=== PATIENT | female | born 1930 | race African-American/Black ===

== ENCOUNTER 2019-07-26 16:10 | Inpatient (IN) | payer MEDICARE ==
[~2019-07-26] VITALS: Ht 160 cm; Wt 45.8 kg
[~2019-07-26 16:10] MED LIST: ALBUTEROL2.5 MG/3 M INH; ASPIR 8181 MG ORAL; DOCUSATE SODIU100 MG ORAL; ELIQUIS5 MG PO; INCRUSE ELLI62.5 MCG IH; MEGESTROL ACETA40 MG PO; MULTIVITAMINS1 EAC8 ORAL; PREDNISONE20 MG ORAL; PROCARDIA XL30 MG ORAL; PROTONIX40 MG ORAL; SENNA8.6 M2 PO; SYNTHROID150 MCG ORAL; VITAMIN B-12500 MCG ORAL
[2019-07-26 21:20] VITALS: BP 111/55
[2019-07-26] MEDS ORDERED: VITAMIN C250 MG ORAL (21:58)
[2019-07-26] MEDS ORDERED: ACETAMINOPHEN325 M1 ORAL (22:01)
[2019-07-26] MEDS ORDERED: Zolpidem 5mg tab ORAL PRN (22:45)
[2019-07-27] VITALS: BP 109/60
[2019-07-27 04:00] VITALS: BP 110/61
[2019-07-27 07:26] LABS: ALANINE AMINOTRANSFERASE 36 U/L (12-78); ALBUMIN 2.4 G/DL (3.4-5.0); ALBUMIN/GLOBULIN RATIO 0.7 (1.0-2.7); ALKALINE PHOSPHATASE 62 U/L (46-116); ANION GAP 3 mmol/L (5-15); ASPARTATE AMINO TRANSFERASE 32 U/L (15-37); BASOPHILS % (AUTO) 0.5 % (0.0-2.0); BILIRUBIN,TOTAL 0.2 MG/DL (0.2-1.0); BLOOD UREA NITROGEN 30 mg/dL (7-18); CALCIUM 7.7 MG/DL (8.5-10.1); CARBON DIOXIDE 34 MMOL/L (21-32); CHLORIDE 127 MMOL/L (98-107); CHOLESTEROL 175 MG/DL (< 200); CREATININE 0.8 MG/DL (0.55-1.30); EOSINOPHILS % (AUTO) 1.7 % (0.0-3.0); HDL CHOLESTEROL 34 MG/DL (40-60); HEMATOCRIT 45.4 % (37.0-47.0); HEMOGLOBIN 13.4 G/DL (12.0-16.0); MEAN CORPUSCULAR VOLUME 101 FL (80-99); NEUTROPHILS % (AUTO) 83.8 % (45.0-75.0); PHOSPHORUS 3.9 MG/DL (2.5-4.9); PLATELET COUNT 162 K/UL (150-450); POTASSIUM 4.3 MMOL/L (3.5-5.1); RED BLOOD COUNT 4.51 M/UL (4.20-5.40); RED CELL DISTRIBUTION WIDTH 18.9 % (11.6-14.8); TRIGLYCERIDES 112 MG/DL (30-150); WHITE BLOOD COUNT 7.5 K/UL (4.8-10.8)
[2019-07-27 07:50] LABS: SODIUM 164 MMOL/L (136-145)
[2019-07-27 08:00] VITALS: BP 101/65
[2019-07-27] MEDS ORDERED: Megace 400mg/10ml Susp ORAL SCH (09:00)
[2019-07-27] MEDS: Vitamin B-12 500mcg tab ORAL SCH (09:46)
[2019-07-27] MEDS: Eliquis 5mg tablet ORAL SCH ×2 (09:47→18:22)
[2019-07-27] MEDS: Sennosides 8.6mg tab ORAL SCH (09:47)
--- NOTE | 2019-07-27 11:31 | Consultation ---
Consult Note Consult Note I was asked to eval for fluid management known to me from her previous admission patient lethargic no current notes in EMR . Assessment/Plan -----HyperNatremia, Dehydration (1) Hypothyroidism (2) s/p Acute respiratory failure & Intubation (3) Functional quadriplegia (4) h/o Septic shock (5) Electrolyte imbalance (6) Anemia when not dehydrated Plan D5W monitor lytes Anemia ross TFTs Synthroid per orders Tej Gomez MD Jul 27, 2019 11:31
--- NOTE | 2019-07-27 11:33 | Consultation ---
History of Present Illness General Date patient seen: Jul 27, 2019 Present Illness HPI 89 year old female with hx of Dementia, recent hospitalization at [facility] b/o acute respiratory failure, alf resident, was taken to [facility] with CC of facial droop. She was diagnosed to have UTI and increased Troponin and transferred to [facility] [place]. Allergies: Coded Allergies: VANCOMYCIN (Verified Allergy, Unknown, 06/23/19) Medication History Scheduled Apixaban (Eliquis), 5 MG PO EVERY 12 HOURS, (Reported) Ascorbic Acid* (Vitamin C*), 250 MG ORAL TWICE A DAY, (Reported) Aspirin* (Aspir 81*), 81 MG ORAL DAILY, (Reported) Cyanocobalamin (Vitamin B-12)* (Vitamin B-12*), 1,000 MCG ORAL DAILY, (Reported) Docusate Sodium* (Docusate Sodium*), 100 MG ORAL THREE TIMES A DAY, (Reported) Levothyroxine Sodium* (Synthroid*), 150 MCG ORAL DAILY, (Reported) Megestrol Acetate (Megestrol Acetate), 40 MG PO BID, (Reported) Multivitamin With Minerals (Multivitamins With Minerals*), 1 TAB ORAL DAILY, ( Reported) Nifedipine Xl* (Procardia Xl*), 30 MG ORAL Q12HR, (Reported) Pantoprazole* (Protonix*), 40 MG ORAL DAILY, (Reported) Prednisone* (Prednisone*), 5 MG ORAL DAILY, (Reported) Umeclidinium [place] (Incruse Ellipta), 62.5 MCG IH DAILY, (Reported) Scheduled PRN Acetaminophen* (Acetaminophen 325MG Tablet*), 650 MG ORAL Q4H PRN for Pain Scale (6-10), (Reported) Albuterol Sulfate* (Albuterol Sulfate Hhn*), 3 ML INH Q4H PRN for Shortness of Breath, (Reported) Miscellaneous Medications Sennosides (Senna), 8.6 MG PO, (Reported) Patient History Healthcare decision maker Resuscitation status Advanced Directive on File Past Medical/Surgical History Past Medical/Surgical History: (1) Anemia (2) Functional quadriplegia (3) Pancreatic mass (4) Hypothyroidism (5) Alzheimer disease Review of Systems All Other Systems: negative except mentioned in HPI Physical Exam General Appearance: cachetic, thin Lines, tubes and drains: peripheral HEENT: normocephalic, atraumatic Neck: non-tender, normal alignment Respiratory/Chest: chest wall non-tender, lungs clear Cardiovascular/Chest: normal peripheral pulses, normal rate, regular rhythm Abdomen: normal bowel sounds, non tender Genitourinary/Rectal: normal genital exam, normal rectal exam Extremities: normal range of motion, non-tender Skin Exam: normal pigmentation Last 24 Hour Vital Signs Date Time Temp Pulse Resp B/P (MAP) Pulse Ox O2 Delivery O2 Flow Rate FiO2 07/27/19 08:45 Nasal Cannula 2.0 07/27/19 08:00 96.6 105 20 101/65 (77) 98 07/27/19 08:00 102 07/27/19 04:00 99 07/27/19 04:00 97.5 98 18 110/61 (77) 100 07/27/19 00:00 97.7 101 18 109/60 (76) 100 07/27/19 00:00 97 07/26/19 22:00 Nasal Cannula 2.0 07/26/19 21:20 97.6 91 19 111/55 (73) 91 Intake and Output 07/26/19 07/27/19 19:00 07:00 Intake Total 50 ml Balance 50 ml Intake Oral 50 ml # Voids 2 Laboratory Tests Test 07/27/19 05:25 White Blood Count 7.5 K/UL (4.8-10.8) Red Blood Count 4.51 M/UL (4.20-5.40) Hemoglobin 13.4 G/DL (12.0-16.0) Hematocrit 45.4 % (37.0-47.0) Mean Corpuscular Volume 101 FL (80-99) H Mean Corpuscular Hemoglobin 29.8 PG (27.0-31.0) Mean Corpuscular Hemoglobin Concent 29.6 G/DL (32.0-36.0) L Red Cell Distribution Width 18.9 % (11.6-14.8) H Platelet Count 162 K/UL (150-450) Mean Platelet Volume 7.6 FL (6.5-10.1) Neutrophils (%) (Auto) 83.8 % (45.0-75.0) H Lymphocytes (%) (Auto) 8.0 % (20.0-45.0) L Monocytes (%) (Auto) 6.0 % (1.0-10.0) Eosinophils (%) (Auto) 1.7 % (0.0-3.0) Basophils (%) (Auto) 0.5 % (0.0-2.0) Sodium Level 164 MMOL/L (136-145) *H Potassium Level 4.3 MMOL/L (3.5-5.1) Chloride Level 127 MMOL/L (98-107) H Carbon Dioxide Level 34 MMOL/L (21-32) H Anion Gap 3 mmol/L (5-15) L Blood Urea Nitrogen 30 mg/dL (7-18) H Creatinine 0.8 MG/DL (0.55-1.30) Estimat Glomerular Filtration Rate mL/min (>60) Glucose Level 79 MG/DL (74-106) Calcium Level 7.7 MG/DL (8.5-10.1) L Phosphorus Level 3.9 MG/DL (2.5-4.9) Magnesium Level 2.4 MG/DL (1.8-2.4) Total Bilirubin 0.2 MG/DL (0.2-1.0) Aspartate Amino Transf (AST/SGOT) 32 U/L (15-37) Alanine Aminotransferase (ALT/SGPT) 36 U/L (12-78) Alkaline Phosphatase 62 U/L (46-116) Troponin I 0.128 ng/mL (0.000-0.056) Total Protein 5.7 G/DL (6.4-8.2) L Albumin 2.4 G/DL (3.4-5.0) L Globulin 3.3 g/dL Albumin/Globulin Ratio 0.7 (1.0-2.7) L Triglycerides Level 112 MG/DL (30-150) Cholesterol Level 175 MG/DL (< 200) LDL Cholesterol 112 mg/dL (<100) H HDL Cholesterol 34 MG/DL (40-60) L Cholesterol/HDL Ratio 5.1 (3.3-4.4) H Height (Feet): 5 Height (Inches): 3.00 Weight (Pounds): 101 Medications Current Medications Medications (Trade) Dose Ordered Sig/Adrien Route PRN Reason Start Time Stop Time Status Last Admin Dose Admin Acetaminophen (Tylenol) 650 mg Q6H PRN ORAL Mild Pain/Temp > 100.5 07/26/19 22:45 08/25/19 22:44 Apixaban (Eliquis) 5 mg BID ORAL 07/27/19 09:00 08/26/19 08:59 07/27/19 09:47 Cyanocobalamin (Vitamin B-12) 1,000 mcg DAILY ORAL 07/27/19 09:00 08/26/19 08:59 07/27/19 09:46 Dextrose 1,000 ml @ 150 mls/hr Q6H40M IV 07/27/19 11:15 08/26/19 11:14 UNV Levothyroxine Sodium (Synthroid) 150 mcg DAILY ORAL 07/28/19 09:00 08/27/19 08:59 UNV Levothyroxine Sodium (Synthroid) 150 mcg DAILY@0630 ORAL 07/27/19 06:30 08/26/19 06:29 07/27/19 06:03 Nifedipine (Procardia XL) 30 mg Q12HR ORAL 07/27/19 21:00 08/26/19 20:59 UNV Non-Formulary Medication (Non-Formulary Med) 1 ea DAILY ORAL 07/27/19 09:00 08/26/19 08:59 UNV Pantoprazole (Protonix) 40 mg DAILY ORAL 07/27/19 09:00 08/26/19 08:59 07/27/19 09:46 Sennosides (Senokot) 8.6 mg DAILY ORAL 07/27/19 09:00 08/26/19 08:59 07/27/19 09:47 Zolpidem Tartrate (Ambien) 5 mg HSPRN PRN ORAL Insomnia 07/26/19 22:45 08/02/19 22:44 Assessment/Plan Problem List: (1) Non-ST elevation (NSTEMI) myocardial infarction ICD Codes: I21.4 - Non-ST elevation (NSTEMI) myocardial infarction SNOMED: 39900973 (2) Dehydration ICD Codes: E86.0 - Dehydration SNOMED: 82978325 (3) UTI (urinary tract infection) ICD Codes: N39.0 - Urinary tract infection, site not specified SNOMED: 31761212 (4) At high risk for aspiration ICD Codes: Z91.89 - Other specified personal risk factors, not elsewhere classified SNOMED: 452407397 (5) Anemia ICD Codes: D64.9 - Anemia, unspecified SNOMED: 659284733 (6) Hypothyroidism ICD Codes: E03.9 - Hypothyroidism, unspecified SNOMED: 11279052 (7) Alzheimer disease ICD Codes: G30.9 - Alzheimer's disease, unspecified; F02.80 - Dementia in other diseases classified elsewhere without behavioral disturbance SNOMED: 78617358 Assessment/Plan: iv fluids iv abx check cultures swallow study continue Synthroid aspiration precaution dvt prophylaxis Wellington Benitez MD Jul 27, 2019 11:33
[2019-07-27 12:00] VITALS: BP 104/71
[2019-07-27] MEDS: Cefepime HCl 1 GM in D5W 55 ML IVPB SCH (12:16)
--- NOTE | 2019-07-27 12:36 | Diagnostic Imaging Report ---
Indication: Dyspnea Technique: XRAY Chest 1v Comparison: 07/09/2019 Findings: Heart size and mediastinal contours are stable. Atherosclerotic calcifications again noted. Mild interstitial prominence is again noted, similar to the prior exam allowing for differences in technique. Dense retrocardiac opacities are again noted. Again there is blunting of the left costophrenic sulcus suggesting trace to small left pleural effusion. No evidence of pneumothorax. Osseous structures stable. Impression: Persistent dense retrocardiac opacities which may be related to atelectasis or pneumonia. These findings are unchanged compared to the prior exam. Please correlate clinically. Unchanged blunting of the left costophrenic sulcus suggesting trace to small left pleural effusion. Unchanged generalized interstitial prominence which may be on the basis of senescent change. Again correlate clinically to exclude mild congestive changes.
--- NOTE | 2019-07-27 13:57 | Diagnostic Imaging Report ---
Indication: Altered mental status. Facial droop. Question transient ischemic attack versus stroke History of Alzheimer's dementia. Technique: MRI the brain performed utilizing T1 sagittal, T2 axial, T1 FLAIR axial, T2 FLAIR axial, T2*GRE and diffusion axial images without gadolinium. Comparison: None Findings: Mild motion degradation. Within these limitations: No diffusion abnormalities are seen on diffusion weighted imaging to suggest acute infarct. No obvious focus of abnormal GRE signal dropout to suggest acute intracranial hemorrhage. The sulci, ventricles and cisterns are prominent consistent with atrophy. Periventricular and supratentorial white matter T2 hyperintensity are seen without mass effect. There is no shift of midline structures. No significant extra-axial collections of fluid or blood are demonstrated. The sella and parasellar regions are grossly unremarkable. Expected signal flow voids are seen of the vessels of the skull base. Visualized mastoid air cells and paranasal sinuses are unremarkable. No focal bony calvarium or soft tissue lesions are seen. IMPRESSION: Motion degraded exam. Within these limitations: No acute intracranial abnormality. Specifically, no evidence of acute infarct as questioned clinically. Atrophy and chronic ischemic microvascular changes.
[2019-07-27 16:00] VITALS: BP 103/80
--- NOTE | 2019-07-27 16:07 | History & Physical ---
History and Physical History & Physicial job # [id number] Avi Luz MD Jul 27, 2019 16:07
[2019-07-27 20:00] VITALS: BP 95/58
[2019-07-27 20:33] LABS: APPEARANCE,URINE CLEAR; BILIRUBIN, URINE NEGATIVE (NEGATIVE); GLUCOSE, URINE (UA) NEGATIVE (NEGATIVE); KETONES,URINE 1+ (NEGATIVE); LEUKOCYTE ESTERASE ,URINE NEGATIVE (NEGATIVE); NITRITE,URINE NEGATIVE (NEGATIVE); PH,URINE 5 (4.5-8.0); PROTEIN,URINE 2+ (NEGATIVE); UROBILINOGEN,URINE NORMAL MG/DL (0.0-1.0)
[2019-07-27 20:37] LABS: COLOR,URINE YELLOW
[2019-07-28] VITALS: BP 111/59
[2019-07-28 04:00] VITALS: BP 139/61
[2019-07-28 08:00] VITALS: BP 107/64
[2019-07-28 08:27] LABS: BASOPHILS % (AUTO) 1.1 % (0.0-2.0); EOSINOPHILS % (AUTO) 0.7 % (0.0-3.0); HEMATOCRIT 39.3 % (37.0-47.0); HEMOGLOBIN 11.8 G/DL (12.0-16.0); LYMPHOCYTES % (AUTO) 11.5 % (20.0-45.0); MEAN CORPUSCULAR VOLUME 102 FL (80-99); MONOCYTES % (AUTO) 6.9 % (1.0-10.0); NEUTROPHILS % (AUTO) 79.9 % (45.0-75.0); PLATELET COUNT 131 K/UL (150-450); RED BLOOD COUNT 3.84 M/UL (4.20-5.40); RED CELL DISTRIBUTION WIDTH 18.9 % (11.6-14.8); WHITE BLOOD COUNT 5.3 K/UL (4.8-10.8)
[2019-07-28 08:29] LABS: INR 1.1 (0.9-1.1)
--- NOTE | 2019-07-28 09:18 | Cardiology Progress Note ---
Assessment/Plan Assessment/Plan abn trop likely demand related pt not a candidate for any invasive therapy repeat trop and ekg , and stat bb for tachy await echo will follow thank you is on eliqusi hesitant to start antiplt long-term will administer asa one time as well as statin [id number] Objective Last 24 Hour Vital Signs Date Time Temp Pulse Resp B/P (MAP) Pulse Ox O2 Delivery O2 Flow Rate FiO2 07/28/19 08:00 98.1 60 18 107/64 (78) 98 07/28/19 04:00 97.5 99 24 139/61 (87) 94 07/28/19 04:00 99 07/28/19 00:00 100 07/28/19 00:00 97.9 100 17 111/59 (76) 99 07/27/19 21:00 Nasal Cannula 2.0 07/27/19 20:00 97.5 98 16 95/58 (70) 96 07/27/19 20:00 98 07/27/19 16:00 96.7 101 22 103/80 (88) 97 07/27/19 16:00 105 07/27/19 12:00 102 07/27/19 12:00 98.6 102 19 104/71 (82) 100 Intake and Output 07/27/19 07/28/19 18:59 06:59 Intake Total 25 ml Output Total 250 ml 200 ml Balance -225 ml -200 ml Intake Oral 0 ml IV Total 25 ml Output Urine Total 250 ml 200 ml # Voids 1 Laboratory Tests Test 07/27/19 17:30 07/28/19 07:38 Urine Color Yellow Urine Appearance Clear Urine pH 5 (4.5-8.0) Urine Specific [place] 1.025 (1.005-1.035) Urine Protein 2+ (NEGATIVE) H Urine Glucose (UA) Negative (NEGATIVE) Urine Ketones 1+ (NEGATIVE) H Urine Blood 5+ (NEGATIVE) H Urine Nitrite Negative (NEGATIVE) Urine Bilirubin Negative (NEGATIVE) Urine Urobilinogen Normal MG/DL (0.0-1.0) Urine Leukocyte Esterase Negative (NEGATIVE) Urine RBC 5-10 /HPF (0 - 2) H Urine WBC 2-4 /HPF (0 - 2) Urine Squamous Epithelial Cells Few /LPF (NONE/OCC) Urine Bacteria Few /HPF (NONE) Urine Yeast Few /HPF (NONE) H White Blood Count 5.3 K/UL (4.8-10.8) Red Blood Count 3.84 M/UL (4.20-5.40) L Hemoglobin 11.8 G/DL (12.0-16.0) L Hematocrit 39.3 % (37.0-47.0) Mean Corpuscular Volume 102 FL (80-99) H Mean Corpuscular Hemoglobin 30.7 PG (27.0-31.0) Mean Corpuscular Hemoglobin Concent 30.0 G/DL (32.0-36.0) L Red Cell Distribution Width 18.9 % (11.6-14.8) H Platelet Count 131 K/UL (150-450) L Mean Platelet Volume 7.1 FL (6.5-10.1) Neutrophils (%) (Auto) 79.9 % (45.0-75.0) H Lymphocytes (%) (Auto) 11.5 % (20.0-45.0) L Monocytes (%) (Auto) 6.9 % (1.0-10.0) Eosinophils (%) (Auto) 0.7 % (0.0-3.0) Basophils (%) (Auto) 1.1 % (0.0-2.0) Prothrombin Time 11.6 SEC (9.30-11.50) H Prothromb Time International Ratio 1.1 (0.9-1.1) Activated Partial Thromboplast Time 31 SEC (23-33) Sodium Level Pending Potassium Level Pending Chloride Level Pending Carbon Dioxide Level Pending Blood Urea Nitrogen Pending Creatinine Pending Estimat Glomerular Filtration Rate Pending Glucose Level Pending Hemoglobin A1c 5.5 % (4.3-6.0) Uric Acid Pending Calcium Level Pending Phosphorus Level Pending Magnesium Level Pending Total Bilirubin Pending Gamma Glutamyl Transpeptidase Pending Aspartate Amino Transf (AST/SGOT) Pending Alanine Aminotransferase (ALT/SGPT) Pending Alkaline Phosphatase Pending Total Creatine Kinase Pending C-Reactive Protein, Quantitative Pending Pro-B-Type Natriuretic Peptide Pending Total Protein Pending Albumin Pending Globulin Pending Free Thyroxine Pending Free Triiodothyronine Pending Microbiology Date/Time Source Procedure Growth Status 07/27/19 17:30 Urine,Clean Catch Urine Culture - Preliminary NO GROWTH Resulted Geoff Oneill MD Jul 28, 2019 09:18
[2019-07-28 09:24] LABS: ALANINE AMINOTRANSFERASE 26 U/L (12-78); ALBUMIN 2.3 G/DL (3.4-5.0); ALBUMIN/GLOBULIN RATIO 0.7 (1.0-2.7); ALKALINE PHOSPHATASE 54 U/L (46-116); ANION GAP 3 mmol/L (5-15); ASPARTATE AMINO TRANSFERASE 21 U/L (15-37); BILIRUBIN,TOTAL 0.3 MG/DL (0.2-1.0); BLOOD UREA NITROGEN 32 mg/dL (7-18); CALCIUM 7.4 MG/DL (8.5-10.1); CARBON DIOXIDE 33 MMOL/L (21-32); CHLORIDE 123 MMOL/L (98-107); CREATININE 0.9 MG/DL (0.55-1.30); POTASSIUM 4.1 MMOL/L (3.5-5.1); SODIUM 159 MMOL/L (136-145)
[2019-07-28] MEDS: Sennosides 8.6mg tab ORAL SCH (09:28)
[2019-07-28] MEDS: Vitamin B-12 500mcg tab ORAL SCH (09:28)
[2019-07-28] MEDS: Eliquis 5mg tablet ORAL SCH ×2 (09:28→17:55)
[2019-07-28] MEDS: Metoprolol Tartrate 12.5mg TAB ORAL SCH ×2 (09:30→21:23)
[2019-07-28] MEDS ORDERED: Aspirin EC 81mg tab ORAL SCH (09:30)
[2019-07-28 09:46] LABS: CREATINE KINASE 62 U/L (26-308); GAMMA GLUTAMYL TRANSPEPTIDASE 9 U/L (5-85); PHOSPHORUS 2.2 MG/DL (2.5-4.9)
--- NOTE | 2019-07-28 10:01 | Consultation ---
History of Present Illness General Date patient seen: Jul 28, 2019 Reason for Consultation: UTI Present Illness HPI Ms. Cooper is an 89 yo female with PMHx of HTN, Pancreatic mass, Functional quadriplegia, Alzheimer disease and Hypothyroidism who was transferred from [place] after presenting with possible acute CVA, Elevated trops and UTI. She has dementia and is unable to given a history. She was note to have facial droop at the retirement. At time of arrival she had been aferbile, UA (-) and she had no leukocytosis. She is currently on Cefepime and 2L NC. She is lethargic and not communicating so Hx was obtained from the notes ID was consulted for PNA PMHx/PSHx HTN SocHx No E/T/D FamHx Unable to obtain as patient with dementia Allergies: Coded Allergies: VANCOMYCIN (Verified Allergy, Unknown, 06/23/19) Medication History Scheduled Apixaban (Eliquis), 5 MG PO EVERY 12 HOURS, (Reported) Ascorbic Acid* (Vitamin C*), 250 MG ORAL TWICE A DAY, (Reported) Aspirin* (Aspir 81*), 81 MG ORAL DAILY, (Reported) Cyanocobalamin (Vitamin B-12)* (Vitamin B-12*), 1,000 MCG ORAL DAILY, (Reported) Docusate Sodium* (Docusate Sodium*), 100 MG ORAL THREE TIMES A DAY, (Reported) Levothyroxine Sodium* (Synthroid*), 150 MCG ORAL DAILY, (Reported) Megestrol Acetate (Megestrol Acetate), 40 MG PO BID, (Reported) Multivitamin With Minerals (Multivitamins With Minerals*), 1 TAB ORAL DAILY, ( Reported) Nifedipine Xl* (Procardia Xl*), 30 MG ORAL Q12HR, (Reported) Pantoprazole* (Protonix*), 40 MG ORAL DAILY, (Reported) Prednisone* (Prednisone*), 5 MG ORAL DAILY, (Reported) Umeclidinium [place] (Incruse Ellipta), 62.5 MCG IH DAILY, (Reported) Scheduled PRN Acetaminophen* (Acetaminophen 325MG Tablet*), 650 MG ORAL Q4H PRN for Pain Scale (6-10), (Reported) Albuterol Sulfate* (Albuterol Sulfate Hhn*), 3 ML INH Q4H PRN for Shortness of Breath, (Reported) Miscellaneous Medications Sennosides (Senna), 8.6 MG PO, (Reported) Patient History Healthcare decision maker Resuscitation status Advanced Directive on File Review of Systems ROS Narrative Unable to obtain as patient with dementia Physical Exam Last 24 Hour Vital Signs Date Time Temp Pulse Resp B/P (MAP) Pulse Ox O2 Delivery O2 Flow Rate FiO2 07/28/19 09:30 60 107/64 07/28/19 08:00 98.1 60 18 107/64 (78) 98 07/28/19 04:00 97.5 99 24 139/61 (87) 94 07/28/19 04:00 99 07/28/19 00:00 100 07/28/19 00:00 97.9 100 17 111/59 (76) 99 07/27/19 21:00 Nasal Cannula 2.0 07/27/19 20:00 97.5 98 16 95/58 (70) 96 07/27/19 20:00 98 07/27/19 16:00 96.7 101 22 103/80 (88) 97 07/27/19 16:00 105 07/27/19 12:00 102 07/27/19 12:00 98.6 102 19 104/71 (82) 100 Intake and Output 07/27/19 07/28/19 19:00 07:00 Intake Total 25 ml Output Total 250 ml 200 ml Balance -225 ml -200 ml IV Total 25 ml Output Urine Total 250 ml 200 ml # Voids 1 Laboratory Tests Test 07/27/19 17:30 07/28/19 07:38 Urine Color Yellow Urine Appearance Clear Urine pH 5 (4.5-8.0) Urine Specific [place] 1.025 (1.005-1.035) Urine Protein 2+ (NEGATIVE) H Urine Glucose (UA) Negative (NEGATIVE) Urine Ketones 1+ (NEGATIVE) H Urine Blood 5+ (NEGATIVE) H Urine Nitrite Negative (NEGATIVE) Urine Bilirubin Negative (NEGATIVE) Urine Urobilinogen Normal MG/DL (0.0-1.0) Urine Leukocyte Esterase Negative (NEGATIVE) Urine RBC 5-10 /HPF (0 - 2) H Urine WBC 2-4 /HPF (0 - 2) Urine Squamous Epithelial Cells Few /LPF (NONE/OCC) Urine Bacteria Few /HPF (NONE) Urine Yeast Few /HPF (NONE) H White Blood Count 5.3 K/UL (4.8-10.8) Red Blood Count 3.84 M/UL (4.20-5.40) L Hemoglobin 11.8 G/DL (12.0-16.0) L Hematocrit 39.3 % (37.0-47.0) Mean Corpuscular Volume 102 FL (80-99) H Mean Corpuscular Hemoglobin 30.7 PG (27.0-31.0) Mean Corpuscular Hemoglobin Concent 30.0 G/DL (32.0-36.0) L Red Cell Distribution Width 18.9 % (11.6-14.8) H Platelet Count 131 K/UL (150-450) L Mean Platelet Volume 7.1 FL (6.5-10.1) Neutrophils (%) (Auto) 79.9 % (45.0-75.0) H Lymphocytes (%) (Auto) 11.5 % (20.0-45.0) L Monocytes (%) (Auto) 6.9 % (1.0-10.0) Eosinophils (%) (Auto) 0.7 % (0.0-3.0) Basophils (%) (Auto) 1.1 % (0.0-2.0) Prothrombin Time 11.6 SEC (9.30-11.50) H Prothromb Time International Ratio 1.1 (0.9-1.1) Activated Partial Thromboplast Time 31 SEC (23-33) Sodium Level 159 MMOL/L (136-145) H Potassium Level 4.1 MMOL/L (3.5-5.1) Chloride Level 123 MMOL/L (98-107) H Carbon Dioxide Level 33 MMOL/L (21-32) H Anion Gap 3 mmol/L (5-15) L Blood Urea Nitrogen 32 mg/dL (7-18) H Creatinine 0.9 MG/DL (0.55-1.30) Estimat Glomerular Filtration Rate mL/min (>60) Glucose Level 182 MG/DL (74-106) #H Hemoglobin A1c 5.5 % (4.3-6.0) Uric Acid 8.9 MG/DL (2.6-7.2) H Calcium Level 7.4 MG/DL (8.5-10.1) L Phosphorus Level 2.2 MG/DL (2.5-4.9) L Magnesium Level 2.4 MG/DL (1.8-2.4) Total Bilirubin 0.3 MG/DL (0.2-1.0) Gamma Glutamyl Transpeptidase 9 U/L (5-85) Aspartate Amino Transf (AST/SGOT) 21 U/L (15-37) Alanine Aminotransferase (ALT/SGPT) 26 U/L (12-78) Alkaline Phosphatase 54 U/L (46-116) Total Creatine Kinase 62 U/L (26-308) Troponin I Pending C-Reactive Protein, Quantitative 3.3 mg/dL (0.00-0.90) H Pro-B-Type Natriuretic Peptide 712 pg/mL (0-125) H Total Protein 5.5 G/DL (6.4-8.2) L Albumin 2.3 G/DL (3.4-5.0) L Globulin 3.2 g/dL Albumin/Globulin Ratio 0.7 (1.0-2.7) L Free Thyroxine 1.17 NG/DL (0.76-1.46) Free Triiodothyronine 1.2 pg/mL (2.3-4.2) L Microbiology Date/Time Source Procedure Growth Status 07/27/19 17:30 Urine,Clean Catch Urine Culture - Preliminary NO GROWTH Resulted Height (Feet): 5 Height (Inches): 3.00 Weight (Pounds): 101 Medications Current Medications Medications (Trade) Dose Ordered Sig/Adrien Route PRN Reason Start Time Stop Time Status Last Admin Dose Admin Acetaminophen (Tylenol) 650 mg Q6H PRN ORAL Mild Pain/Temp > 100.5 07/26/19 22:45 08/25/19 22:44 Apixaban (Eliquis) 5 mg BID ORAL 07/27/19 09:00 08/26/19 08:59 07/28/19 09:28 Aspirin (Ecotrin) 81 mg DAILY ORAL 07/28/19 09:30 08/27/19 09:29 07/28/19 09:38 Cefepime HCl 1 gm/ Dextrose 55 ml @ 110 mls/hr Q24H IVPB 07/27/19 12:00 08/03/19 11:59 07/27/19 12:16 Cyanocobalamin (Vitamin B-12) 1,000 mcg DAILY ORAL 07/27/19 09:00 08/26/19 08:59 07/28/19 09:28 Dextrose 1,000 ml @ 150 mls/hr Q6H40M IV 07/27/19 11:15 08/26/19 11:14 07/28/19 09:29 Levothyroxine Sodium (Synthroid) 150 mcg DAILY@0630 ORAL 07/28/19 06:30 08/27/19 06:29 07/28/19 06:55 Metoprolol Tartrate (Lopressor) 12.5 mg Q12HR ORAL 07/28/19 09:30 08/27/19 09:29 Non-Formulary Medication (Non-Formulary Med) 1 ea DAILY ORAL 07/27/19 09:00 08/26/19 08:59 UNV Pantoprazole (Protonix) 40 mg DAILY ORAL 07/27/19 09:00 08/26/19 08:59 07/28/19 09:28 Sennosides (Senokot) 8.6 mg DAILY ORAL 07/27/19 09:00 08/26/19 08:59 07/28/19 09:28 Zolpidem Tartrate (Ambien) 5 mg HSPRN PRN ORAL Insomnia 07/26/19 22:45 08/02/19 22:44 Objective Narrative Gen: On 2L nC HEENT: NCAT, MMM, PERRL, No Oral lesion, no scleral icterus NECK: supple, No LAD, No JVD LUNGS: Coarse B/L, with significant B/L Crackles CARDS: RRR, S1, S2, No M/R/G, ABD: Soft, NT, ND, No R/G, + BS, No HSM, No Masses : Deferred Ext: C/C/E, Pulses 2+ B/L (DP, Rad): NEURO: Lethargic not following, Prominent right facial droop SKIN: Warm/dry, No rashes Assessment/Plan Assessment/Plan: 89 yo female with PMHx of HTN, Pancreatic mass, Functional quadriplegia, Alzheimer disease and Hypothyroidism who was transferred from [place] after presenting with possible acute CVA, Elevated trops and UTI. UTI Dx at [place] Here UA (-) Urine Cx - Pend Hx of PNA last month s/p Tx Was intubated at that time, s/p extubation 07/05 CXR 07/27/19 - rectrocardiac opacity still present No fever No leukocytosis Reported facial droop MRI 07/27/19 - Motion degraded exam. Within these limitations: No acute intracranial abnormality. Specifically, no evidence of acute infarct as questioned clinically. Atrophy and chronic ischemic microvascular changes. Elevated trops HTN PE Alzheimers Pancreatic mass Hypothyroid Billiroth operation PLAN - Continue cefepime #1 pending Cx -07/03 SP Zosyn #10 -07/01 SP Azithromycin #8 -06/26 SP Linezolid #2 -06/24/19 S/P Ertapemem #1 and Vancomycin #1 - f/u Cultures - Monitor CBC and Temps Thank you for this consult. [facility] will continue to follow the patient with you during this hospitalization. Shashi Mendieta MD Jul 28, 2019 10:01
[2019-07-28 12:00] VITALS: BP 98/46
[2019-07-28] MEDS: Cefepime HCl 1 GM in D5W 55 ML IVPB SCH (12:46)
--- NOTE | 2019-07-28 13:46 | Internal Med Progress Note ---
Subjective Date of Service: Jul 28, 2019 Physician Name Kody Bauer Attending Physician Avi Luz MD Current Medications Medications (Trade) Dose Ordered Sig/Adrien Route PRN Reason Start Time Stop Time Status Last Admin Dose Admin Acetaminophen (Tylenol) 650 mg Q6H PRN ORAL Mild Pain/Temp > 100.5 07/26/19 22:45 08/25/19 22:44 Apixaban (Eliquis) 5 mg BID ORAL 07/27/19 09:00 08/26/19 08:59 07/28/19 09:28 Aspirin (Ecotrin) 81 mg DAILY ORAL 07/28/19 09:30 08/27/19 09:29 07/28/19 09:38 Cefepime HCl 1 gm/ Dextrose 55 ml @ 110 mls/hr Q24H IVPB 07/27/19 12:00 08/03/19 11:59 07/28/19 12:46 Cyanocobalamin (Vitamin B-12) 1,000 mcg DAILY ORAL 07/27/19 09:00 08/26/19 08:59 07/28/19 09:28 Dextrose 1,000 ml @ 150 mls/hr Q6H40M IV 07/27/19 11:15 08/26/19 11:14 07/28/19 09:29 Levothyroxine Sodium (Synthroid) 150 mcg DAILY@0630 ORAL 07/28/19 06:30 08/27/19 06:29 07/28/19 06:55 Metoprolol Tartrate (Lopressor) 12.5 mg Q12HR ORAL 07/28/19 09:30 08/27/19 09:29 Non-Formulary Medication (Non-Formulary Med) 1 ea DAILY ORAL 07/27/19 09:00 08/26/19 08:59 UNV Pantoprazole (Protonix) 40 mg DAILY ORAL 07/27/19 09:00 08/26/19 08:59 07/28/19 09:28 Sennosides (Senokot) 8.6 mg DAILY ORAL 07/27/19 09:00 08/26/19 08:59 07/28/19 09:28 Zolpidem Tartrate (Ambien) 5 mg HSPRN PRN ORAL Insomnia 07/26/19 22:45 08/02/19 22:44 Allergies: Coded Allergies: VANCOMYCIN (Verified Allergy, Unknown, 06/23/19) ROS Limited/Unobtainable: Yes Subjective 89 YO F admitted with facial droop and UI. Cover for Int Vimal-Dr Luz Objective Last Vital Signs Date Time Temp Pulse Resp B/P (MAP) Pulse Ox O2 Delivery O2 Flow Rate FiO2 07/28/19 12:00 92 07/28/19 12:00 97.9 18 98/46 (63) 96 07/28/19 09:00 Nasal Cannula 2.0 General Appearance: lethargic, thin EENT: PERRL/EOMI, normal ENT inspection Neck: non-tender, normal alignment, supple Cardiovascular: normal peripheral pulses, normal rate, regular rhythm, no gallop/murmur Respiratory/Chest: chest wall non-tender, respiratory distress, crackles/rales , rhonchi - bilaterally, expiratory wheezing Abdomen: normal bowel sounds, non tender, soft, no organomegaly, no mass Extremities: normal range of motion 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 Skin: normal pigmentation, warm/dry Laboratory Tests Test 07/27/19 17:30 07/28/19 07:38 Urine Color Yellow Urine Appearance Clear Urine pH 5 (4.5-8.0) Urine Specific [place] 1.025 (1.005-1.035) Urine Protein 2+ (NEGATIVE) H Urine Glucose (UA) Negative (NEGATIVE) Urine Ketones 1+ (NEGATIVE) H Urine Blood 5+ (NEGATIVE) H Urine Nitrite Negative (NEGATIVE) Urine Bilirubin Negative (NEGATIVE) Urine Urobilinogen Normal MG/DL (0.0-1.0) Urine Leukocyte Esterase Negative (NEGATIVE) Urine RBC 5-10 /HPF (0 - 2) H Urine WBC 2-4 /HPF (0 - 2) Urine Squamous Epithelial Cells Few /LPF (NONE/OCC) Urine Bacteria Few /HPF (NONE) Urine Yeast Few /HPF (NONE) H White Blood Count 5.3 K/UL (4.8-10.8) Red Blood Count 3.84 M/UL (4.20-5.40) L Hemoglobin 11.8 G/DL (12.0-16.0) L Hematocrit 39.3 % (37.0-47.0) Mean Corpuscular Volume 102 FL (80-99) H Mean Corpuscular Hemoglobin 30.7 PG (27.0-31.0) Mean Corpuscular Hemoglobin Concent 30.0 G/DL (32.0-36.0) L Red Cell Distribution Width 18.9 % (11.6-14.8) H Platelet Count 131 K/UL (150-450) L Mean Platelet Volume 7.1 FL (6.5-10.1) Neutrophils (%) (Auto) 79.9 % (45.0-75.0) H Lymphocytes (%) (Auto) 11.5 % (20.0-45.0) L Monocytes (%) (Auto) 6.9 % (1.0-10.0) Eosinophils (%) (Auto) 0.7 % (0.0-3.0) Basophils (%) (Auto) 1.1 % (0.0-2.0) Prothrombin Time 11.6 SEC (9.30-11.50) H Prothromb Time International Ratio 1.1 (0.9-1.1) Activated Partial Thromboplast Time 31 SEC (23-33) Sodium Level 159 MMOL/L (136-145) H Potassium Level 4.1 MMOL/L (3.5-5.1) Chloride Level 123 MMOL/L (98-107) H Carbon Dioxide Level 33 MMOL/L (21-32) H Anion Gap 3 mmol/L (5-15) L Blood Urea Nitrogen 32 mg/dL (7-18) H Creatinine 0.9 MG/DL (0.55-1.30) Estimat Glomerular Filtration Rate mL/min (>60) Glucose Level 182 MG/DL (74-106) #H Hemoglobin A1c 5.5 % (4.3-6.0) Uric Acid 8.9 MG/DL (2.6-7.2) H Calcium Level 7.4 MG/DL (8.5-10.1) L Phosphorus Level 2.2 MG/DL (2.5-4.9) L Magnesium Level 2.4 MG/DL (1.8-2.4) Total Bilirubin 0.3 MG/DL (0.2-1.0) Gamma Glutamyl Transpeptidase 9 U/L (5-85) Aspartate Amino Transf (AST/SGOT) 21 U/L (15-37) Alanine Aminotransferase (ALT/SGPT) 26 U/L (12-78) Alkaline Phosphatase 54 U/L (46-116) Total Creatine Kinase 62 U/L (26-308) Troponin I 0.072 ng/mL (0.000-0.056) C-Reactive Protein, Quantitative 3.3 mg/dL (0.00-0.90) H Pro-B-Type Natriuretic Peptide 712 pg/mL (0-125) H Total Protein 5.5 G/DL (6.4-8.2) L Albumin 2.3 G/DL (3.4-5.0) L Globulin 3.2 g/dL Albumin/Globulin Ratio 0.7 (1.0-2.7) L Free Thyroxine 1.17 NG/DL (0.76-1.46) Free Triiodothyronine 1.2 pg/mL (2.3-4.2) L Microbiology Date/Time Source Procedure Growth Status 07/27/19 17:30 Urine,Clean Catch Urine Culture - Preliminary NO GROWTH Resulted Intake and Output 07/27/19 07/28/19 19:00 07:00 Intake Total 25 ml Output Total 250 ml 200 ml Balance -225 ml -200 ml IV Total 25 ml Output Urine Total 250 ml 200 ml # Voids 1 Assessment/Plan Problem List: (1) History of pulmonary embolism Assessment & Plan: Continue apixaban (2) Alzheimer's dementia (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 Cont cefepime (6) Pancreatic mass (7) Hypothyroidism Assessment & Plan: Continue synthroid (8) Functional quadriplegia Kody Bauer MD Jul 28, 2019 13:46
[2019-07-28] MEDS ORDERED: Phospha 250 Neutral tab ORAL SCH (14:00)
--- NOTE | 2019-07-28 14:07 | Nephrology Progress Note ---
Assessment/Plan Problem List: (1) Hypernatremia (2) Hypothyroidism (3) Dehydration (4) Electrolyte imbalance (5) Anemia Assessment -----HyperNatremia, Dehydration (1) Hypothyroidism (2) s/p Acute respiratory failure & Intubation (3) Functional quadriplegia (4) h/o Septic shock (5) Electrolyte imbalance (6) Anemia when not dehydrated Plan Plan D5W monitor lytes Anemia ross TFTs Synthroid per orders Subjective ROS Limited/Unobtainable: No Constitutional: Reports: malaise Objective Objective Last 24 Hour Vital Signs Date Time Temp Pulse Resp B/P (MAP) Pulse Ox O2 Delivery O2 Flow Rate FiO2 07/28/19 12:00 92 07/28/19 12:00 97.9 91 18 98/46 (63) 96 07/28/19 09:30 60 107/64 07/28/19 09:00 Nasal Cannula 2.0 07/28/19 08:00 92 07/28/19 08:00 98.1 60 18 107/64 (78) 98 07/28/19 04:00 97.5 99 24 139/61 (87) 94 07/28/19 04:00 99 07/28/19 00:00 100 07/28/19 00:00 97.9 100 17 111/59 (76) 99 07/27/19 21:00 Nasal Cannula 2.0 07/27/19 20:00 97.5 98 16 95/58 (70) 96 07/27/19 20:00 98 07/27/19 16:00 96.7 101 22 103/80 (88) 97 07/27/19 16:00 105 Intake and Output 07/27/19 07/28/19 19:00 07:00 Intake Total 25 ml Output Total 250 ml 200 ml Balance -225 ml -200 ml IV Total 25 ml Output Urine Total 250 ml 200 ml # Voids 1 Laboratory Tests 07/27/19 17:30: Urine Color Yellow, Urine Appearance Clear, Urine pH 5, Urine Specific [place] 1.025, Urine Protein 2+H, Urine Glucose (UA) Negative, Urine Ketones 1+H, Urine Blood 5+H, Urine Nitrite Negative, Urine Bilirubin Negative, Urine Urobilinogen Normal, Urine Leukocyte Esterase Negative, Urine RBC 5-10H, Urine WBC 2-4, Urine Squamous Epithelial Cells Few, Urine Bacteria Few, Urine Yeast FewH 07/28/19 07:38: White Blood Count 5.3, Red Blood Count 3.84L, Hemoglobin 11.8L, Hematocrit 39.3 , Mean Corpuscular Volume 102H, Mean Corpuscular Hemoglobin 30.7, Mean Corpuscular Hemoglobin Concent 30.0L, Red Cell Distribution Width 18.9H, Platelet Count 131L, Mean Platelet Volume 7.1, Neutrophils (%) (Auto) 79.9H, Lymphocytes (%) (Auto) 11.5L, Monocytes (%) (Auto) 6.9, Eosinophils (%) (Auto) 0.7, Basophils (%) (Auto) 1.1, Prothrombin Time 11.6H, Prothromb Time International Ratio 1.1, Activated Partial Thromboplast Time 31, Sodium Level 159H, Potassium Level 4.1, Chloride Level 123H, Carbon Dioxide Level 33H, Anion Gap 3L, Blood Urea Nitrogen 32H, Creatinine 0.9, Estimat Glomerular Filtration Rate , Glucose Level 182#H, Hemoglobin A1c 5.5, Uric Acid 8.9H, Calcium Level 7.4L, Phosphorus Level 2.2L, Magnesium Level 2.4, Total Bilirubin 0.3, Gamma Glutamyl Transpeptidase 9, Aspartate Amino Transf (AST/SGOT) 21, Alanine Aminotransferase (ALT/SGPT) 26, Alkaline Phosphatase 54, Total Creatine Kinase 62, Troponin I 0.072H, C-Reactive Protein, Quantitative 3.3H, Pro-B-Type Natriuretic Peptide 712H, Total Protein 5.5L, Albumin 2.3L, Globulin 3.2, Albumin/Globulin Ratio 0.7L, Free Thyroxine 1.17, Free Triiodothyronine 1.2L Height (Feet): 5 Height (Inches): 3.00 Weight (Pounds): 101 General Appearance: no apparent distress Cardiovascular: tachycardia Respiratory/Chest: decreased breath sounds Abdomen: soft Tej Gomez MD Jul 28, 2019 14:07
--- NOTE | 2019-07-28 15:57 | Pulmonology Progress Note ---
Assessment/Plan Problems: (1) Dehydration (2) Non-ST elevation (NSTEMI) myocardial infarction (3) UTI (urinary tract infection) (4) At high risk for aspiration (5) Anemia (6) Hypothyroidism (7) Alzheimer disease Assessment/Plan iv fluids iv abx electrolytes improving check cultures swallow study continue Synthroid aspiration precaution dvt prophylaxis all notes reviewed Subjective Interval Events: somnolent Allergies: Coded Allergies: VANCOMYCIN (Verified Allergy, Unknown, 06/23/19) Objective Last 24 Hour Vital Signs Date Time Temp Pulse Resp B/P (MAP) Pulse Ox O2 Delivery O2 Flow Rate FiO2 07/28/19 12:00 92 07/28/19 12:00 97.9 91 18 98/46 (63) 96 07/28/19 09:30 60 107/64 07/28/19 09:00 Nasal Cannula 2.0 07/28/19 08:00 92 07/28/19 08:00 98.1 60 18 107/64 (78) 98 07/28/19 04:00 97.5 99 24 139/61 (87) 94 07/28/19 04:00 99 07/28/19 00:00 100 07/28/19 00:00 97.9 100 17 111/59 (76) 99 07/27/19 21:00 Nasal Cannula 2.0 07/27/19 20:00 97.5 98 16 95/58 (70) 96 07/27/19 20:00 98 07/27/19 16:00 96.7 101 22 103/80 (88) 97 07/27/19 16:00 105 Intake and Output 07/27/19 07/28/19 19:00 07:00 Intake Total 25 ml Output Total 250 ml 200 ml Balance -225 ml -200 ml IV Total 25 ml Output Urine Total 250 ml 200 ml # Voids 1 General Appearance: WD/WN HEENT: normocephalic, atraumatic Respiratory/Chest: chest wall non-tender, lungs clear Breasts: no masses Cardiovascular: regular rhythm Abdomen: soft, non tender Extremities: no cyanosis Skin: no lesions Lymphatic: no groin adenopathy Microbiology Date/Time Source Procedure Growth Status 07/27/19 17:30 Urine,Clean Catch Urine Culture - Preliminary NO GROWTH Resulted Laboratory Tests 07/27/19 17:30: Urine Color Yellow, Urine Appearance Clear, Urine pH 5, Urine Specific [place] 1.025, Urine Protein 2+H, Urine Glucose (UA) Negative, Urine Ketones 1+H, Urine Blood 5+H, Urine Nitrite Negative, Urine Bilirubin Negative, Urine Urobilinogen Normal, Urine Leukocyte Esterase Negative, Urine RBC 5-10H, Urine WBC 2-4, Urine Squamous Epithelial Cells Few, Urine Bacteria Few, Urine Yeast FewH 07/28/19 07:38: White Blood Count 5.3, Red Blood Count 3.84L, Hemoglobin 11.8L, Hematocrit 39.3 , Mean Corpuscular Volume 102H, Mean Corpuscular Hemoglobin 30.7, Mean Corpuscular Hemoglobin Concent 30.0L, Red Cell Distribution Width 18.9H, Platelet Count 131L, Mean Platelet Volume 7.1, Neutrophils (%) (Auto) 79.9H, Lymphocytes (%) (Auto) 11.5L, Monocytes (%) (Auto) 6.9, Eosinophils (%) (Auto) 0.7, Basophils (%) (Auto) 1.1, Prothrombin Time 11.6H, Prothromb Time International Ratio 1.1, Activated Partial Thromboplast Time 31, Sodium Level 159H, Potassium Level 4.1, Chloride Level 123H, Carbon Dioxide Level 33H, Anion Gap 3L, Blood Urea Nitrogen 32H, Creatinine 0.9, Estimat Glomerular Filtration Rate , Glucose Level 182#H, Hemoglobin A1c 5.5, Uric Acid 8.9H, Calcium Level 7.4L, Phosphorus Level 2.2L, Magnesium Level 2.4, Total Bilirubin 0.3, Gamma Glutamyl Transpeptidase 9, Aspartate Amino Transf (AST/SGOT) 21, Alanine Aminotransferase (ALT/SGPT) 26, Alkaline Phosphatase 54, Total Creatine Kinase 62, Troponin I 0.072H, C-Reactive Protein, Quantitative 3.3H, Pro-B-Type Natriuretic Peptide 712H, Total Protein 5.5L, Albumin 2.3L, Globulin 3.2, Albumin/Globulin Ratio 0.7L, Free Thyroxine 1.17, Free Triiodothyronine 1.2L Current Medications Medications (Trade) Dose Ordered Sig/Adrien Route PRN Reason Start Time Stop Time Status Last Admin Dose Admin Acetaminophen (Tylenol) 650 mg Q6H PRN ORAL Mild Pain/Temp > 100.5 07/26/19 22:45 08/25/19 22:44 Apixaban (Eliquis) 5 mg BID ORAL 07/27/19 09:00 08/26/19 08:59 07/28/19 09:28 Aspirin (Ecotrin) 81 mg DAILY ORAL 07/28/19 09:30 08/27/19 09:29 07/28/19 09:38 Cefepime HCl 1 gm/ Dextrose 55 ml @ 110 mls/hr Q24H IVPB 07/27/19 12:00 08/03/19 11:59 07/28/19 12:46 Cyanocobalamin (Vitamin B-12) 1,000 mcg DAILY ORAL 07/27/19 09:00 08/26/19 08:59 07/28/19 09:28 Dextrose 1,000 ml @ 150 mls/hr Q6H40M IV 07/27/19 11:15 08/26/19 11:14 07/28/19 15:21 Levothyroxine Sodium (Synthroid) 150 mcg DAILY@0630 ORAL 07/28/19 06:30 08/27/19 06:29 07/28/19 06:55 Metoprolol Tartrate (Lopressor) 12.5 mg Q12HR ORAL 07/28/19 09:30 08/27/19 09:29 Non-Formulary Medication (Non-Formulary Med) 1 ea DAILY ORAL 07/27/19 09:00 08/26/19 08:59 UNV Pantoprazole (Protonix) 40 mg DAILY ORAL 07/27/19 09:00 08/26/19 08:59 07/28/19 09:28 Sennosides (Senokot) 8.6 mg DAILY ORAL 07/27/19 09:00 08/26/19 08:59 07/28/19 09:28 Zolpidem Tartrate (Ambien) 5 mg HSPRN PRN ORAL Insomnia 07/26/19 22:45 08/02/19 22:44 Wellington Benitez MD Jul 28, 2019 15:57
[2019-07-28 16:00] VITALS: BP 100/60
[2019-07-28 20:00] VITALS: BP 111/53
[2019-07-29] VITALS (10 sets, daily range): BP systolic 52–136; BP diastolic 33–68
[2019-07-29 05:43] LABS: BASOPHILS % (AUTO) 1.2 % (0.0-2.0); EOSINOPHILS % (AUTO) 1.2 % (0.0-3.0); HEMATOCRIT 37.4 % (37.0-47.0); HEMOGLOBIN 11.3 G/DL (12.0-16.0); LYMPHOCYTES % (AUTO) 17.5 % (20.0-45.0); MEAN CORPUSCULAR VOLUME 100 FL (80-99); MONOCYTES % (AUTO) 7.5 % (1.0-10.0); NEUTROPHILS % (AUTO) 72.6 % (45.0-75.0); PLATELET COUNT 144 K/UL (150-450); RED BLOOD COUNT 3.73 M/UL (4.20-5.40); RED CELL DISTRIBUTION WIDTH 17.6 % (11.6-14.8); WHITE BLOOD COUNT 7.4 K/UL (4.8-10.8)
[2019-07-29 06:44] LABS: ALANINE AMINOTRANSFERASE 29 U/L (12-78); ALBUMIN 2.8 G/DL (3.4-5.0); ALBUMIN/GLOBULIN RATIO 0.9 (1.0-2.7); ALKALINE PHOSPHATASE 48 U/L (46-116); ANION GAP 4 mmol/L (5-15); ASPARTATE AMINO TRANSFERASE 26 U/L (15-37); BILIRUBIN,TOTAL 0.3 MG/DL (0.2-1.0); BLOOD UREA NITROGEN 26 mg/dL (7-18); CALCIUM 6.8 MG/DL (8.5-10.1); CARBON DIOXIDE 30 MMOL/L (21-32); CHLORIDE 108 MMOL/L (98-107); CREATININE 0.8 MG/DL (0.55-1.30); POTASSIUM 4.1 MMOL/L (3.5-5.1); SODIUM 142 MMOL/L (136-145)
[2019-07-29 06:58] LABS: PHOSPHORUS 3.3 MG/DL (2.5-4.9)
[2019-07-29] MEDS ORDERED: Morphine Sulfate 10mg/5ml Oral Soln ud ORAL PRN (08:45)
[2019-07-29] MEDS ORDERED: Haloperidol 1mg tab ORAL PRN (08:45)
[2019-07-29] MEDS ORDERED: Glycopyrrolate 0.2mg/ml 1ml Vial IV PRN (08:45)
[2019-07-29] MEDS ORDERED: Morphine Sulfate 2mg/ml Inj(IV/IM USE ONLY) IVP PRN (09:49)
--- NOTE | 2019-07-29 12:24 | Nephrology Progress Note ---
Assessment/Plan Problem List: (1) Hypernatremia (2) Hypothyroidism (3) Dehydration (4) Electrolyte imbalance (5) Anemia Assessment -----HyperNatremia, Dehydration (1) Hypothyroidism (2) s/p Acute respiratory failure & Intubation (3) Functional quadriplegia (4) h/o Septic shock (5) Electrolyte imbalance (6) Anemia when not dehydrated Plan Now DNR on MS drip Will pull back on new orders Previously: D5W monitor lytes Anemia ross TFTs Synthroid per orders Subjective ROS Limited/Unobtainable: No Constitutional: Reports: malaise, weakness Objective Objective Last 24 Hour Vital Signs Date Time Temp Pulse Resp B/P (MAP) Pulse Ox O2 Delivery O2 Flow Rate FiO2 07/29/19 05:20 6.0 07/29/19 04:00 98 07/29/19 04:00 97.7 77 16 115/67 (83) 99 07/29/19 01:53 124 07/29/19 01:16 119 07/29/19 00:00 85 07/29/19 00:00 98.1 92 20 110/68 (82) 98 07/28/19 21:23 107 110/54 07/28/19 21:05 Simple Mask 6.0 07/28/19 21:00 Simple Mask 6.0 07/28/19 20:00 99.3 104 18 111/53 (72) 98 07/28/19 20:00 109 07/28/19 16:00 98.3 98 18 100/60 (73) 98 07/28/19 16:00 109 Intake and Output 07/28/19 07/29/19 19:00 07:00 Intake Total 2325 ml 1500 ml Output Total 225 ml 300 ml Balance 2100 ml 1200 ml Intake Oral 120 ml IV Total 2205 ml 1500 ml Output Urine Total 225 ml 300 ml Stool Total 0 ml Laboratory Tests 07/29/19 05:18: White Blood Count 7.4, Red Blood Count 3.73L, Hemoglobin 11.3L, Hematocrit 37.4 , Mean Corpuscular Volume 100H, Mean Corpuscular Hemoglobin 30.4, Mean Corpuscular Hemoglobin Concent 30.3L, Red Cell Distribution Width 17.6H, Platelet Count 144L, Mean Platelet Volume 7.7, Neutrophils (%) (Auto) 72.6, Lymphocytes (%) (Auto) 17.5L, Monocytes (%) (Auto) 7.5, Eosinophils (%) (Auto) 1.2, Basophils (%) (Auto) 1.2, Sodium Level 142#, Potassium Level 4.1, Chloride Level 108H, Carbon Dioxide Level 30, Anion Gap 4L, Blood Urea Nitrogen 26H, Creatinine 0.8, Estimat Glomerular Filtration Rate , Glucose Level 148H, Uric Acid 7.3H, Calcium Level 6.8L, Phosphorus Level 3.3, Magnesium Level 1.9, Total Bilirubin 0.3, Aspartate Amino Transf (AST/SGOT) 26, Alanine Aminotransferase ( ALT/SGPT) 29, Alkaline Phosphatase 48, Troponin I 0.255H, Pro-B-Type Natriuretic Peptide 1886H, Total Protein 5.8L, Albumin 2.8L, Globulin 3.0, Albumin/Globulin Ratio 0.9L, Thyroid Stimulating Hormone (TSH) 1.921, Cortisol AM Sample [Pending] 07/29/19 08:00: Arterial Blood pH 6.967*L, Arterial Blood Partial Pressure CO2 156.2*H, Arterial Blood Partial Pressure O2 < 45.3*L, Arterial Blood HCO3 34.9H, Arterial Blood Oxygen Saturation 77.9*L, Arterial Blood Base Excess -0.8, Darvin Test Positive Height (Feet): 5 Height (Inches): 3.00 Weight (Pounds): 101 General Appearance: lethargic, moderate distress Cardiovascular: tachycardia Respiratory/Chest: decreased breath sounds Abdomen: distended Tej Gomez MD Jul 29, 2019 12:24
--- NOTE | 2019-07-29 14:19 | Internal Med Progress Note ---
Subjective Physician Name Kody Bauer Attending Physician Avi Luz MD Current Medications Medications (Trade) Dose Ordered Sig/Adrien Route PRN Reason Start Time Stop Time Status Last Admin Dose Admin Acetaminophen (Tylenol) 650 mg Q6H PRN ORAL Mild Pain/Temp > 100.5 07/26/19 22:45 08/25/19 22:44 Atropine Sulfate (Atropine Opth Fany) 1 drop Q2H PRN SL excessive secretions 07/29/19 08:45 08/28/19 08:44 Glycopyrrolate (Robinul) 0.1 mg Q6H PRN IV excessive secretions 2ND 07/29/19 08:45 08/28/19 08:44 Haloperidol (Haldol) 1 mg Q30MIN PRN ORAL Agitation 07/29/19 08:45 08/28/19 08:44 Morphine Sulfate (Morphine Sulfate) 2 mg Q2H PRN IVP Shortness of breath 07/29/19 09:49 08/05/19 09:48 07/29/19 09:59 Morphine Sulfate (Morphine 10mg/ 5ml Oral Soln) 5 mg Q3H PRN ORAL Breakthrough Pain 07/29/19 08:45 08/05/19 08:44 Non-Formulary Medication (Non-Formulary Med) 1 ea DAILY ORAL 07/27/19 09:00 08/26/19 08:59 UNV Allergies: Coded Allergies: VANCOMYCIN (Verified Allergy, Unknown, 06/23/19) Subjective 89 YO F admitted with facial droop and UTI. Now pnuemonia. Cover for Int Med- Dr Luz. ICU Objective Last Vital Signs Date Time Temp Pulse Resp B/P (MAP) Pulse Ox O2 Delivery O2 Flow Rate FiO2 07/29/19 05:20 6.0 07/29/19 04:00 98 07/29/19 04:00 97.7 16 115/67 (83) 99 07/28/19 21:05 Simple Mask Laboratory Tests Test 07/29/19 05:18 07/29/19 08:00 White Blood Count 7.4 K/UL (4.8-10.8) Red Blood Count 3.73 M/UL (4.20-5.40) L Hemoglobin 11.3 G/DL (12.0-16.0) L Hematocrit 37.4 % (37.0-47.0) Mean Corpuscular Volume 100 FL (80-99) H Mean Corpuscular Hemoglobin 30.4 PG (27.0-31.0) Mean Corpuscular Hemoglobin Concent 30.3 G/DL (32.0-36.0) L Red Cell Distribution Width 17.6 % (11.6-14.8) H Platelet Count 144 K/UL (150-450) L Mean Platelet Volume 7.7 FL (6.5-10.1) Neutrophils (%) (Auto) 72.6 % (45.0-75.0) Lymphocytes (%) (Auto) 17.5 % (20.0-45.0) L Monocytes (%) (Auto) 7.5 % (1.0-10.0) Eosinophils (%) (Auto) 1.2 % (0.0-3.0) Basophils (%) (Auto) 1.2 % (0.0-2.0) Sodium Level 142 MMOL/L (136-145) # Potassium Level 4.1 MMOL/L (3.5-5.1) Chloride Level 108 MMOL/L (98-107) H Carbon Dioxide Level 30 MMOL/L (21-32) Anion Gap 4 mmol/L (5-15) L Blood Urea Nitrogen 26 mg/dL (7-18) H Creatinine 0.8 MG/DL (0.55-1.30) Estimat Glomerular Filtration Rate mL/min (>60) Glucose Level 148 MG/DL (74-106) H Uric Acid 7.3 MG/DL (2.6-7.2) H Calcium Level 6.8 MG/DL (8.5-10.1) L Phosphorus Level 3.3 MG/DL (2.5-4.9) Magnesium Level 1.9 MG/DL (1.8-2.4) Total Bilirubin 0.3 MG/DL (0.2-1.0) Aspartate Amino Transf (AST/SGOT) 26 U/L (15-37) Alanine Aminotransferase (ALT/SGPT) 29 U/L (12-78) Alkaline Phosphatase 48 U/L (46-116) Troponin I 0.255 ng/mL (0.000-0.056) Pro-B-Type Natriuretic Peptide 1886 pg/mL (0-125) H Total Protein 5.8 G/DL (6.4-8.2) L Albumin 2.8 G/DL (3.4-5.0) L Globulin 3.0 g/dL Albumin/Globulin Ratio 0.9 (1.0-2.7) L Thyroid Stimulating Hormone (TSH) 1.921 uiU/mL (0.358-3.740) Cortisol AM Sample Pending Arterial Blood pH 6.967 (7.350-7.450) Arterial Blood Partial Pressure CO2 156.2 mmHg (35.0-45.0) *H Arterial Blood Partial Pressure O2 < 45.3 mmHg (75.0-100.0) Arterial Blood HCO3 34.9 mmol/L (22.0-26.0) H Arterial Blood Oxygen Saturation 77.9 % (95-100) *L Arterial Blood Base Excess -0.8 (-2-2) Darvin Test Positive Microbiology Date/Time Source Procedure Growth Status 07/27/19 17:30 Urine,Clean Catch Urine Culture - Final NO GROWTH AFTER 48 HOURS Complete 07/27/19 00:00 Rectal Mucosa - Final NO CARBAPENEM-RESISTANT ENTEROBACTERI... Complete 07/27/19 00:00 Rectum VRE Culture - Final Enterococcus Faecium - Vre Complete Intake and Output 07/28/19 07/29/19 19:00 07:00 Intake Total 2325 ml 1500 ml Output Total 225 ml 300 ml Balance 2100 ml 1200 ml Intake Oral 120 ml IV Total 2205 ml 1500 ml Output Urine Total 225 ml 300 ml Stool Total 0 ml Objective General Appearance: lethargic, thin EENT: PERRL/EOMI, normal ENT inspection Neck: non-tender, normal alignment, supple Cardiovascular: normal peripheral pulses, normal rate, regular rhythm, no gallop/murmur Respiratory/Chest: Simple mask; chest wall non-tender, respiratory distress, crackles/rales, rhonchi - bilaterally, expiratory wheezing Abdomen: normal bowel sounds, non tender, soft, no organomegaly, no mass Extremities: normal range of motion 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 Pulmonary=Dr Benitez; ID=Dr Mendieta. 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 Cont cefepime (7) Pancreatic mass (8) Hypothyroidism Assessment & Plan: Continue synthroid (9) Functional quadriplegia (10) Acute respiratory failure Assessment & Plan: Continue simple mask Kody Bauer MD Jul 29, 2019 14:19
--- NOTE | 2019-07-29 15:08 | Cardiology Progress Note ---
Assessment/Plan Assessment/Plan respiratory failure respiratory acidosis abn trop / nstemi uti pt seems agonal respiration on my arrival staff indicate they have discussed with sister and confirmed by jesus rn no cpr no intubation no resuscitation the family however seem want her to get her abx and ivf on november arrival i have confirmed with family including her sister no cpr no intubation no resuscitation with rns present as witnesses i have explained at the present situation the means for her to survival will be to be placed on a ventilator otherwise due to low oxygen her other organ system will start fail including her heart which will become slow and then stop and she will , family member which include her sister confirmed that they want her ivf adn abx to be continued but no resuscitation and allow natural rn will prepare the abx when due and the pt is already on ivf prognosis is grim Subjective ROS Limited/Unobtainable: Yes Objective Last 24 Hour Vital Signs Date Time Temp Pulse Resp B/P (MAP) Pulse Ox O2 Delivery O2 Flow Rate FiO2 07/29/19 05:20 6.0 07/29/19 04:00 98 07/29/19 04:00 97.7 77 16 115/67 (83) 99 07/29/19 01:53 124 07/29/19 01:16 119 07/29/19 00:00 85 07/29/19 00:00 98.1 92 20 110/68 (82) 98 07/28/19 21:23 107 110/54 07/28/19 21:05 Simple Mask 6.0 07/28/19 21:00 Simple Mask 6.0 07/28/19 20:00 99.3 104 18 111/53 (72) 98 07/28/19 20:00 109 07/28/19 16:00 98.3 98 18 100/60 (73) 98 07/28/19 16:00 109 General Appearance: lethargic, other - agonal breathing Neck: supple Cardiovascular: normal rate Respiratory/Chest: decreased breath sounds Abdomen: normal bowel sounds, non tender, soft Extremities: no swelling Intake and Output 07/28/19 07/29/19 19:00 07:00 Intake Total 2325 ml 1500 ml Output Total 225 ml 300 ml Balance 2100 ml 1200 ml Intake Oral 120 ml IV Total 2205 ml 1500 ml Output Urine Total 225 ml 300 ml Stool Total 0 ml Laboratory Tests Test 07/29/19 05:18 07/29/19 08:00 White Blood Count 7.4 K/UL (4.8-10.8) Red Blood Count 3.73 M/UL (4.20-5.40) L Hemoglobin 11.3 G/DL (12.0-16.0) L Hematocrit 37.4 % (37.0-47.0) Mean Corpuscular Volume 100 FL (80-99) H Mean Corpuscular Hemoglobin 30.4 PG (27.0-31.0) Mean Corpuscular Hemoglobin Concent 30.3 G/DL (32.0-36.0) L Red Cell Distribution Width 17.6 % (11.6-14.8) H Platelet Count 144 K/UL (150-450) L Mean Platelet Volume 7.7 FL (6.5-10.1) Neutrophils (%) (Auto) 72.6 % (45.0-75.0) Lymphocytes (%) (Auto) 17.5 % (20.0-45.0) L Monocytes (%) (Auto) 7.5 % (1.0-10.0) Eosinophils (%) (Auto) 1.2 % (0.0-3.0) Basophils (%) (Auto) 1.2 % (0.0-2.0) Sodium Level 142 MMOL/L (136-145) # Potassium Level 4.1 MMOL/L (3.5-5.1) Chloride Level 108 MMOL/L (98-107) H Carbon Dioxide Level 30 MMOL/L (21-32) Anion Gap 4 mmol/L (5-15) L Blood Urea Nitrogen 26 mg/dL (7-18) H Creatinine 0.8 MG/DL (0.55-1.30) Estimat Glomerular Filtration Rate mL/min (>60) Glucose Level 148 MG/DL (74-106) H Uric Acid 7.3 MG/DL (2.6-7.2) H Calcium Level 6.8 MG/DL (8.5-10.1) L Phosphorus Level 3.3 MG/DL (2.5-4.9) Magnesium Level 1.9 MG/DL (1.8-2.4) Total Bilirubin 0.3 MG/DL (0.2-1.0) Aspartate Amino Transf (AST/SGOT) 26 U/L (15-37) Alanine Aminotransferase (ALT/SGPT) 29 U/L (12-78) Alkaline Phosphatase 48 U/L (46-116) Troponin I 0.255 ng/mL (0.000-0.056) Pro-B-Type Natriuretic Peptide 1886 pg/mL (0-125) H Total Protein 5.8 G/DL (6.4-8.2) L Albumin 2.8 G/DL (3.4-5.0) L Globulin 3.0 g/dL Albumin/Globulin Ratio 0.9 (1.0-2.7) L Thyroid Stimulating Hormone (TSH) 1.921 uiU/mL (0.358-3.740) Cortisol AM Sample Pending Arterial Blood pH 6.967 (7.350-7.450) Arterial Blood Partial Pressure CO2 156.2 mmHg (35.0-45.0) *H Arterial Blood Partial Pressure O2 < 45.3 mmHg (75.0-100.0) Arterial Blood HCO3 34.9 mmol/L (22.0-26.0) H Arterial Blood Oxygen Saturation 77.9 % (95-100) *L Arterial Blood Base Excess -0.8 (-2-2) Darvin Test Positive Microbiology Date/Time Source Procedure Growth Status 07/27/19 17:30 Urine,Clean Catch Urine Culture - Final NO GROWTH AFTER 48 HOURS Complete 07/27/19 00:00 Rectal Mucosa - Final NO CARBAPENEM-RESISTANT ENTEROBACTERI... Complete 07/27/19 00:00 Rectum VRE Culture - Final Enterococcus Faecium - Vre Complete Geoff Oneill MD Jul 29, 2019 15:08
--- NOTE | 2019-07-29 15:31 | Pulmonolgy Critical Care Note ---
Critical Care - Asmt/Plan Problems: (1) Acute respiratory failure (2) Pneumonia (3) Anemia (4) Hypothyroidism (5) History of pulmonary embolism (6) Alzheimer's dementia (7) Functional quadriplegia (8) Pancreatic mass Respiratory: monitor respiratory rate, adjust FIO2, other Cardiac: continue to monitor HR/BP Renal: F/U I&O Infectious Disease: check cultures Gastrointestinal: hold feedings Endocrine: monitor blood sugar Hematologic: monitor H/H Neurologic: PRN Ativan, PRN Morphine Notes Reviewed: civil engineering specialist, cardio, renal Discussed with: nurses, consultants, casework specialist, other - Pt was DNR in previous admission. Family agreed with DNR again, knowing that she might pass this time without oral intubation . Critical Care - Objective Last 24 Hour Vital Signs Date Time Temp Pulse Resp B/P (MAP) Pulse Ox O2 Delivery O2 Flow Rate FiO2 07/29/19 05:20 6.0 07/29/19 04:00 98 07/29/19 04:00 97.7 77 16 115/67 (83) 99 07/29/19 01:53 124 07/29/19 01:16 119 07/29/19 00:00 85 07/29/19 00:00 98.1 92 20 110/68 (82) 98 07/28/19 21:23 107 110/54 07/28/19 21:05 Simple Mask 6.0 07/28/19 21:00 Simple Mask 6.0 07/28/19 20:00 99.3 104 18 111/53 (72) 98 07/28/19 20:00 109 07/28/19 16:00 98.3 98 18 100/60 (73) 98 07/28/19 16:00 109 Status: obtunded Condition: critical Neck: full ROM Lungs: clear Heart: HR/BP stable Abdomen: soft, non-tender Extremities: no C/C/E Decubiti: location Micro: Microbiology Date/Time Source Procedure Growth Status 07/27/19 17:30 Urine,Clean Catch Urine Culture - Final NO GROWTH AFTER 48 HOURS Complete 07/27/19 00:00 Rectal Mucosa - Final NO CARBAPENEM-RESISTANT ENTEROBACTERI... Complete 07/27/19 00:00 Rectum VRE Culture - Final Enterococcus Faecium - Vre Complete Critical Care - Subjective ROS Limited/Unobtainable: Yes ICU Day: 1 Intubation Day: was dyspnic and got transferred to ICU Condition: critical, grave EKG Rhythm: Sinus Rhythm I&O: Intake and Output 07/28/19 07/29/19 19:00 07:00 Intake Total 2325 ml 1500 ml Output Total 225 ml 300 ml Balance 2100 ml 1200 ml Intake Oral 120 ml IV Total 2205 ml 1500 ml Output Urine Total 225 ml 300 ml Stool Total 0 ml Labs: Laboratory Tests Test 07/29/19 05:18 07/29/19 08:00 White Blood Count 7.4 K/UL (4.8-10.8) Red Blood Count 3.73 M/UL (4.20-5.40) L Hemoglobin 11.3 G/DL (12.0-16.0) L Hematocrit 37.4 % (37.0-47.0) Mean Corpuscular Volume 100 FL (80-99) H Mean Corpuscular Hemoglobin 30.4 PG (27.0-31.0) Mean Corpuscular Hemoglobin Concent 30.3 G/DL (32.0-36.0) L Red Cell Distribution Width 17.6 % (11.6-14.8) H Platelet Count 144 K/UL (150-450) L Mean Platelet Volume 7.7 FL (6.5-10.1) Neutrophils (%) (Auto) 72.6 % (45.0-75.0) Lymphocytes (%) (Auto) 17.5 % (20.0-45.0) L Monocytes (%) (Auto) 7.5 % (1.0-10.0) Eosinophils (%) (Auto) 1.2 % (0.0-3.0) Basophils (%) (Auto) 1.2 % (0.0-2.0) Sodium Level 142 MMOL/L (136-145) # Potassium Level 4.1 MMOL/L (3.5-5.1) Chloride Level 108 MMOL/L (98-107) H Carbon Dioxide Level 30 MMOL/L (21-32) Anion Gap 4 mmol/L (5-15) L Blood Urea Nitrogen 26 mg/dL (7-18) H Creatinine 0.8 MG/DL (0.55-1.30) Estimat Glomerular Filtration Rate mL/min (>60) Glucose Level 148 MG/DL (74-106) H Uric Acid 7.3 MG/DL (2.6-7.2) H Calcium Level 6.8 MG/DL (8.5-10.1) L Phosphorus Level 3.3 MG/DL (2.5-4.9) Magnesium Level 1.9 MG/DL (1.8-2.4) Total Bilirubin 0.3 MG/DL (0.2-1.0) Aspartate Amino Transf (AST/SGOT) 26 U/L (15-37) Alanine Aminotransferase (ALT/SGPT) 29 U/L (12-78) Alkaline Phosphatase 48 U/L (46-116) Troponin I 0.255 ng/mL (0.000-0.056) Pro-B-Type Natriuretic Peptide 1886 pg/mL (0-125) H Total Protein 5.8 G/DL (6.4-8.2) L Albumin 2.8 G/DL (3.4-5.0) L Globulin 3.0 g/dL Albumin/Globulin Ratio 0.9 (1.0-2.7) L Thyroid Stimulating Hormone (TSH) 1.921 uiU/mL (0.358-3.740) Cortisol AM Sample Pending Arterial Blood pH 6.967 (7.350-7.450) Arterial Blood Partial Pressure CO2 156.2 mmHg (35.0-45.0) *H Arterial Blood Partial Pressure O2 < 45.3 mmHg (75.0-100.0) Arterial Blood HCO3 34.9 mmol/L (22.0-26.0) H Arterial Blood Oxygen Saturation 77.9 % (95-100) *L Arterial Blood Base Excess -0.8 (-2-2) Darvin Test Positive Wellington Benitez MD Jul 29, 2019 15:31
--- NOTE | 2019-07-30 12:30 | History and Physical Report ---
DATE OF ADMISSION: 07/26/2019 CHIEF COMPLAINT: Altered mental status. HISTORY OF PRESENT ILLNESS: This is an 89-year-old very delightful female with past medical history significant for history of PE, hypertension, and dementia, who has presented to hospital initially to [facility] complaining of altered mental status. The patient was noted to have facial drooping as well as weakness. The patient apparently woke up in the morning and was at her baseline and then sometime an hour later was found to be having a facial droop. Blood glucose level was within normal limits and subsequently the patient was transferred to [facility] for possible TIA versus CVA. Shortly after initial evaluation over there, the patient was noted to have UTI and mild elevation of troponin and subsequently, the patient was transferred to [facility] for further evaluation and therapy. PAST MEDICAL HISTORY AND PAST SURGICAL HISTORY: As above. History of PE, hypertension, and dementia. MEDICATIONS AT HOME: Please refer to medication reconciliation. ALLERGIES: The patient has allergy to vancomycin. SOCIAL HISTORY: Denies any smoking, alcohol, or drugs. snf resident. FAMILY HISTORY: Noncontributory. REVIEW OF SYSTEMS: Very limited secondary to the patient's status. She is very demented. Cannot answer questions appropriately at her baseline and no fever or chills was reported. PHYSICAL EXAMINATION: VITAL SIGNS: From [place] [facility], blood pressure 106/67, pulse of 86, respiration 23, and temperature 97.4. GENERAL: The patient is awake, responsive, and in no acute distress. HEAD AND NECK: Pupils equal and reactive to light. Anicteric. Neck was supple. No JVD. LUNGS: Good air entry. No wheezing or rales. Decreased air in bases. HEART: S1, S2. Distant heart sounds. No murmur or gallops. ABDOMEN: Soft, nondistended, and nontender. Positive bowel sounds. EXTREMITIES: No cyanosis, clubbing, or edema. NEUROLOGIC: Cranial nerves II through XII grossly intact. The patient is moving all the extremities slowly, but limited. The patient is demented and cannot follow commands; however, she answers questions with single words that are sometimes appropriate and sometimes inappropriate. RECTAL: Refused and deferred. GENITOURINARY: Refused and deferred. PSYCHIATRIC: Mood and affect is unable to obtain. LABORATORY AND DIAGNOSTIC DATA: Laboratory from [facility] noted the patient's urine shows that negative glucose, negative ketone, negative hemoglobin, +1 protein, and positive leukocytes. WBC was noted to be 9.4, hemoglobin 15, hematocrit 54, and platelet is 185,000. Sodium 158, potassium 4.7, chloride 119, bicarb 27, BUN is 35, creatinine is 0.82, and GFR 64. INR is 1.0 and PT of 12. Glucose is 110. PTT of 21. First troponin 0.12. EKG shows multifocal atrial complex, ventricular rate of 67, and nonspecific T-wave abnormality. CT of the brain showed no acute intracranial pathology, multiple scattered and confluent foci of low attenuation within the subcortical and periventricular white matter, and nonspecific finding which is due to chronic microangiopathic changes. The patient had MRI at the [facility], which noted to be motion-degraded examination, no acute intracranial abnormality specified, and no evidence of acute intracranial infarction as questionable clinically. The patient has a chest x-ray done and noted to be persistent density, retrocardiac opacity which may be related to the atelectasis or pneumonia. These findings are unchanged compared to the prior examination. Please correlate clinically. Unchanged blunting of the left costophrenic sulcus suggestive of the trace small left pleural effusion. ASSESSMENT: 1. Altered mental status, most likely secondary to toxic metabolic encephalopathy as a result of dehydration as well as hypernatremia. 2. Possible TIA. 3. Anemia. 4. Hypothyroidism. 5. Alzheimer dementia. 6. [id number] LA. 7. UTI. 8. Dehydration. 9. Acute kidney injury. 10. Functional quadriplegia. PLAN: Admit the patient to monitored unit. We will follow up with the echocardiogram. Discussed case with Dr. Benitez, Pulmonary/Critical Care and Dr. Tej Gomez from Nephrology. Start the patient on D5W. Follow up with the laboratory in the morning as well as cultures. Code status, Full Code at this time. DVT prophylaxis, the patient is on Eliquis. Avi Luz M.D. DR: Jethro JOB#: [id number] CC:
--- NOTE | 2019-07-30 12:45 | Consultation ---
DATE OF CONSULTATION: 07/28/2019 CARDIOLOGY CONSULTATION CONSULTING PHYSICIAN: Geoff Oneill M.D. REFERRING PHYSICIAN: Avi Luz M.D. REASON FOR REFERRAL: Abnormal cardiac enzymes. HISTORY OF PRESENT ILLNESS: This is an elderly female, who is really not able to provide any meaningful history. The patient has been hospitalized here at [facility] before and was seen apparently at [facility] prior to admission. Therefore, this information is obtained mainly from those two sources. [facility] records indicated that the patient was taken to them from convalescent facility for right-sided facial droop. Not known when the patient was last normal and they told the paramedics that it was for the past 15 minutes, however. The patient was seen in the emergency room at [facility] and was diagnosed with urinary tract infection. Tele-Stroke consultation was obtained with them and they have reported that the patient was reported to have dysarthria, facial droop, and alteration in mentation. She was on Eliquis and felt not to be a candidate for thrombolytic therapy and no thrombectomy due to poor baseline functional status. The etiology of altered mental status was felt to be broad occluding stroke, toxic metabolic encephalopathy, or infectious respiratory disease. Workup was recommended. If systemic workup was negative, could consider MRI of the brain, EEG, and did have CT scan which showed no intracranial pathology, multiple scattered confluent foci of low attenuation within the subcortical and periventricular white matter, nonspecific findings. The patient was subsequently transferred and diagnosed with urinary tract infection. Troponin was felt to be abnormal and the patient was transferred to the [facility] for further care because of her prior hospitalization at this facility. The patient is demented at baseline and nonverbal, contracted lower extremities, and not following commands. No facial droop was noted to be present by the staff over at [facility]. In either case, the patient remains that way right now and is not really communicative or responsive to me at all although she does spontaneously move her upper extremities and does turn her head. 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 ALLERGIES: Reportedly allergic to vancomycin. SOCIAL HISTORY: The patient is apparently . No prior history of alcohol or tobacco according to the records. REVIEW OF SYSTEMS: Really unable to obtain. PHYSICAL EXAMINATION: VITAL SIGNS: The patient's blood pressure is anywhere between 95/58 to 139/61, heart rates in the 60-100 range, and temperature-max is 97.5 axillary recorded in the chart. GENERAL: Shows to be elderly female, in no respiratory distress, and edentulous. NECK: Supple. LUNGS: Crackles noted in the left base. CARDIAC: Regular rate and rhythm. No heaves or thrills noted. ABDOMEN: Soft, nontender. EXTREMITIES: Contracted. No significant lower extremity edema is noted. NEUROLOGICAL: Not communicative, not responsive, and not following commands. LABORATORY AND DIAGNOSTIC DATA: Laboratory values, white count of 5.3, hemoglobin 11.8, and platelet count of 131,000. Her last sodium from yesterday was 164, potassium 4.4, chloride 127, bicarb of 34, BUN of 30, creatinine 0.8, and calcium 7.7. Troponin 0.128. Albumin of 2.4. Total cholesterol is 175 and LDL of 112, and her TSH previously as high as 52 and subsequently 49, back in 06/2019. Those levels need to be repeated of course and are pending at this time. Repeat laboratories from today are pending. Her INR is 1.1 and PTT of 30. Urinalysis yesterday shows 5-10 rbc's, 2-4 wbc's, 5+ blood, and 1+ ketones. Her imaging, just the MRI of the brain that was performed yesterday has shown motion-degraded exam, no acute intracranial abnormalities, and no evidence of acute infarction is noted. Chest x-ray that was performed yesterday here showed persistent dense retrocardiac opacity, which reveals atelectasis or pneumonia; unchanged compared to June 2016. Blunting of the left costophrenic angle, interstitial prominence which maybe on the basis of senescent changes. Her last echocardiogram was performed on June 23, 2019, approximately one month ago and at that time was felt to be technically difficult study, ejection fraction down to 50% to 55%, [id number] mitral regurgitation, mild diastolic relaxation abnormality, PA pressure at that time was 21, and the patient's echocardiogram apparently was repeated yesterday and remains to be evaluated or finalized. Telemetry shows sinus rhythm, premature ventricular complexes, and had one episode of atrial tachycardia at rate up to 175, and one episode of nonsustained tachycardia today. The electrocardiogram that was performed, it is from July 27, showing a lot of motion artifact, poor quality EKG, possibly some nonspecific ST or T-wave changes, but sinus rhythm. Nothing of a significant concern in terms of ST-segment changes; that to be repeated. ASSESSMENT AND PLAN: 1. Hypernatremia, probably secondary to free-water deficit. 2. Dementia. 3. Profound hypothyroidism previously. 4. Possibly acute alteration in mentation, recently from convalescent facility. 5. Contracted lower extremities. 6. Possible urinary tract infection. 7. Pleural effusion, small. 8. Nonsustained ventricular tachycardia. 9. Atrial tachycardia. 10. History of pulmonary embolism, on anticoagulation. Dr. Luz and Dr. Benitez, this patient was seen in cardiac consultation. The patient's cardiac enzymes will be repeated. The level is rather nonspecific and the EKG is nonspecific. Echocardiogram has been performed, await final evaluation and we will try to review personally if I also have the capacity to do that later today once I am able to download the studies. In the meantime, the patient is being treated for possibility of an infection as a likely underlying cause of her altered mentation in addition to the hypernatremia. In either case, free water should be administered. She is certainly not a candidate for any invasive treatment for cardiac issues and the abnormal cardiac enzymes are likely demand related secondary to her metabolic process. She did have some nonsustained VT and some atrial tachycardia, and I will consider starting her on some beta-blockers. The patient will be started on at least a dose of aspirin for the time being until further workup is performed. I am hesitant to consider long-term antiplatelet agents in the setting of her being anticoagulated with Eliquis. Statins will be considered as well. Geoff Oneill M.D. : JUSTUS/JOSE JOB#: [id number] CC:
--- NOTE | 2019-07-31 10:11 | Discharge Summary ---
Discharge Summary Discharge Summary _ SUMMARY DATE OF ADMISSION: 07/26/2019 DATE OF EXPIRATION: 07/29/2019 REASON FOR ADMISSION: 89 years old female with past medical history of pulmonary emboli ( on Eliquis) , hypertension, dementia, pancreatic mass, Alzheimer dementia, hypothyroidism, presented initially to [facility] due to altered mental status. Patient noted to have facial droop and weakness. Patient apparently woke up in the morning and was at her baseline. However, sometimes hour later was found to have a facial droop. Blood glucose was stable. Patient was transferred to [facility] for possible TIA versus CVA. Shortly after initial evaluation, the patient was noted to have urinary tract infection , mild elevation of troponin . Patient subsequently was transferred to [facility] for further management. CONSULTANTS: elevator serviceman Dr. Oneill pulmonary Dr. Benitez ID specialist Dr. Mendieta nephrology Dr. Gomez [facility] COURSE: Patient admitted to monitored floor. Echocardiogram revealed normal left ventricular chamber size, systolic function and wall motion to the extent visualized. Mild left ventricular hypertrophy. Right ventricular systolic pressure of 43 consistent with a mild pulmonary hypertension. Oil Program Compliance Specialist followed. Serial troponin showed pattern of mild elevation. Abnormal troponin was likely demand related. Per elevator serviceman, patient was not a candidate for any invasive therapy. Patient started on beta-javi for tachycardia. Patient started on antiplatelet therapy with Aspirin and statin. Eliquis continued. Supplemental oxygen provided and titrated to keep pulse oximetry above 92%. Pulmonary toilet with bronchodilator provided as needed. Chest x-ray revealed persistent dense retrocardiac opacity , possibly related to atelectasis or pneumonia. MRI of the brain revealed no acute intracranial abnormality. No evidence of acute infarct. Atrophy and chronic ischemic changes noted. Altered mental status was most likely secondary to toxic metabolic encephalopathy as a result of dehydration , hypernatremia and possible TIA on underlying pancreatic mass. Urine culture was negative. Patient had evidence of urinary tract infection at [place]. Patient started on empiric antibiotics. Patient had a history of pneumonia last month , status post treatment . At that time patient was intubated and then extubated. Patient also had a history of pancreatic mass. On prior admission TSH was significantly elevated. Dose of levothyroxine was uptitrated. This time TSH was within normal limits. Current dose of levothyroxine was continued. Blood pressure was managed with beta-javi and calcium channel javi. Aspirin and statin continued. GI prophylaxis provided. Supportive care provided. Child And Youth Program Assistant followed. Patient noted to have hypernatremia. Patient was hydrated with D5 water. Renal parameters and electrolytes were closely monitored. Electrolytes further corrected as needed. Nephrotoxins were avoided. Hypernatremia was most likely due to dehydration and resolved ( initial Na 164). BUN from 30 down to 26 creatinine remained stable. Patient also noted to have initially anemia , which was most likely due to dehydration. Respiratory status slowly got worse . Patient initially was on nasal cannula and then required simple mask , and subsequently nonrebreather mask. Patient started on empiric antibiotic as per ID specialist recommendation. ABG on 100% nonrebreathing mask revealed severe respiratory acidosis with pH 6.96 and PCO2 156 urine. Family declined any intubation and decided on DNR/DNI status. Patient started on a morphine drip. Patient condition was rapidly deteriorating. Patient was pronounced at 15:08 on 07/29/2019. Cause of : cardiopulmonary arrest. FINAL DIAGNOSES: Acute hypoxemic hypercapnic respiratory failure Pneumonia Elevated troponin, likely demand related -NSTEMI type 2 Altered mental status, most likely secondary to toxic metabolic encephalopathy ( as a result of dehydration , hypernatremia and possible TIA on underlying pancreatic mass ) Possible TIA. UTI. Dehydration. Acute kidney injury. Nonsustained ventricular tachycardia Atrial tachycardia History of pulmonary embolism Anemia Hypothyroidism with recent profoundly elevated TSH Pancreatic mass Functional quadriplegia Alzheimer dementia Hypernatremia Electrolyte imbalance I have been assigned to dictate discharge summary for this account. I was not involved in the patient's management. Jessica Gates NP Jul 31, 2019 10:11
== END 2019-07-29 19:30 | disposition expired ==
LOC: 2E 20:55 → ICU 07-29 08:11
DX: I21.A1 Myocardial infarction type 2 (principal); J18.9 Pneumonia, unspecified organism; G92 Toxic encephalopathy; J96.22 Acute and chronic respiratory failure with hypercapnia; J96.01 Acute respiratory failure with hypoxia; R53.2 Functional quadriplegia; N39.0 Urinary tract infection, site not specified; N17.9 Acute kidney failure, unspecified; G45.9 Transient cerebral ischemic attack, unspecified; I47.2 Ventricular tachycardia; I47.1 Supraventricular tachycardia; E87.2 Acidosis; E87.0 Hyperosmolality and hypernatremia; E86.0 Dehydration; Z88.1 Allergy status to other antibiotic agents; Z86.711 Personal history of pulmonary embolism; D64.9 Anemia, unspecified; E03.9 Hypothyroidism, unspecified; Z79.01 Long term (current) use of anticoagulants; K86.9 Disease of pancreas, unspecified; G30.9 Alzheimer's disease, unspecified; F02.80 Dementia in other diseases classified elsewhere, unspecified severity, without behavioral disturbance, psychotic disturbance, mood disturbance, and anxiety; I27.20 Pulmonary hypertension, unspecified; Z66 Do not resuscitate; M24.50 Contracture, unspecified joint; I69.392 Facial weakness following cerebral infarction
CPT/HCPCS: 36415; 36600; 70551; 71045; 80053; 80061; 81003; 82533; 82550; 82803; 82977; 83036; 83735; 83880; 84100; 84439; 84443; 84481; 84484; 84550; 85025; 85610; 85730; 86140; 87081; 87086; 93005; 93306; C9399